=== PATIENT | male | born 1965 | race Caucasian/White ===

== ENCOUNTER 2018-12-06 15:17 | Outpatient (CLI) | payer SELFPAY | END 2018-12-06 15:18 | disposition home or self-care (01) | LOC: LAB 15:17 | DX: Z00.00 Encounter for general adult medical examination without abnormal findings (principal); Z76.89 Persons encountering health services in other specified circumstances; E78.49 Other hyperlipidemia ==

== ENCOUNTER 2018-12-07 08:45 | Outpatient (CLI) | payer SELFPAY | END 2018-12-07 08:46 | disposition home or self-care (01) | LOC: LAB 08:45 | DX: Z76.89 Persons encountering health services in other specified circumstances (principal); E78.49 Other hyperlipidemia ==

== ENCOUNTER 2018-12-09 09:40 | Outpatient (CLI) | payer SELFPAY | END 2018-12-09 09:41 | disposition home or self-care (01) | LOC: LAB 09:40 ==